=== PATIENT | female | born 1995 | race Caucasian/White ===

== ENCOUNTER 2018-03-14 13:50 | Emergency (ER) | payer BC, OTHER ==
[~2018-03-14] VITALS: Ht 157.5 cm; Wt 59.0 kg
[2018-03-14 13:55] VITALS: BP 126/85
[2018-03-14] MEDS ORDERED: IBUPROFEN 600 MG TABLET PO ONE (14:26)
[2018-03-14] MEDS: IBUPROFEN 600 MG TABLET PO ONE (14:31)
== END 2018-03-14 15:20 | disposition home or self-care (01) ==
LOC: ER 13:51
DX: S16.1XXA Strain of muscle, fascia and tendon at neck level, initial encounter (principal); S29.011A Strain of muscle and tendon of front wall of thorax, initial encounter; S43.51XA Sprain of right acromioclavicular joint, initial encounter; V49.49XA Driver injured in collision with other motor vehicles in traffic accident, initial encounter; Y93.89 Activity, other specified; Y92.413 State road as the place of occurrence of the external cause; Y99.8 Other external cause status
CPT/HCPCS: 71045-TC; A4606; Z7610